=== PATIENT | male | born 1975 ===

== ENCOUNTER 2017-01-18 21:25 | Inpatient (IN) | payer MEDICAID, OTHER ==
[2017-01-18 21:43] VITALS: O2SAT 97
--- NOTE | 2017-01-18 22:01 | C.PDOC ---
History Of Present Illness 41 y/o male presents to ED with complaint of suicidal ideation for 1 week. Pt requesting heroin detox, notes last use was 1 hour prior to arrival. Patient verbalizing that he does not want to live anymore. Denies any suicidal plan or action, homicidal ideation, or any other physical complaints at this time. Time Seen by Provider: 01/18/17 21:48 Chief Complaint (Nursing): Substance Abuse History Per: Patient History/Exam Limitations: no limitations Onset/Duration Of Symptoms: Persistent Current Symptoms Are (Timing): Still Present Modifying Factor(s): Narcotics Associated Symptoms: Suicidal Thoughts. denies: Anxiety, Agitation, Suicidal Plan Recent travel outside of the [place]: No Past Medical History Reviewed: Historical Data, Nursing Documentation, Vital Signs Vital Signs: Last Vital Signs Temp 97.9 F 01/18/17 21:35 Pulse 93 H 01/18/17 21:35 Resp 20 01/18/17 21:35 BP 113/78 01/18/17 21:35 Pulse Ox 97 01/18/17 22:01 - Medical History PMH: Bipolar Disorder, Hepatitis (C) Family History: States: Unknown Family Hx - Social History Hx Alcohol Use: Yes Hx Substance Use: Yes Review Of Systems Except As Marked, All Systems Reviewed And Found Negative. Constitutional: Negative for: Fever, Chills Cardiovascular: Negative for: Chest Pain Respiratory: Negative for: Cough, Shortness of Breath Skin: Negative for: Rash Psych: Positive for: Suicidal ideation. Negative for: Withdrawal Physical Exam - Physical Exam Appears: Non-toxic, No Acute Distress Skin: Warm, Dry Head: Atraumatic, Normacephalic Chest: Symmetrical Cardiovascular: Rhythm Regular Respiratory: Normal Breath Sounds, No Rales, No Rhonchi, No Wheezing Gastrointestinal/Abdominal: Soft, No Tenderness Back: Normal Inspection Extremity: Normal ROM, Capillary Refill (< 2 sec. ) Neurological/Psych: Oriented x3, Normal Speech, Normal Cognition ED Course And Treatment - Laboratory Results Result Diagrams: 01/18/17 22:54 01/18/17 22:26 O2 Sat by Pulse Oximetry: 97 (RA) Pulse Ox Interpretation: Normal Progress Note: Labs, crisis eval ordered. Disposition Discussed With DrJarvis: Laron Ward Doctor Will See Patient In The: Hospital Counseled Patient/Family Regarding: Diagnosis - Disposition Disposition: HOSPITALIZED Disposition Time: 00:19 Condition: STABLE - Clinical Impression Clinical Impression: Depressive disorder, Opiate addiction - Scribe Statement The provider has reviewed the documentation as recorded by the Teresa Madsen Provider Teresa Attestation: All medical record entries made by the Betzaidaibe were at my direction and personally dictated by me. I have reviewed the chart and agree that the record accurately reflects my personal performance of the history, physical exam, medical decision making, and the department course for this patient. I have also personally directed, reviewed, and agree with the discharge instructions and disposition.
[2017-01-18 22:38] LABS: RBC URINE 2 /hpf (0-3); URINE BACTERIA RARE (<OCC); URINE BILIRUBIN NEGATIVE (NEGATIVE); URINE BLOOD NEGATIVE (NEGATIVE); URINE COLOR Amber (YELLOW); URINE GLUCOSE (UA) NORMAL (Normal); URINE KETONE TRACE mg/dL (NEGATIVE); URINE LEUKOCYTE ESTERASE NEG Leu/uL (Negative); URINE PROTEIN NEGATIVE (NEGATIVE); WBC URINE 6 /hpf (0-5)
[2017-01-18 22:41] LABS: CHLORIDE 104 mmol/L (98-107); SODIUM 141 mmol/L (132-148)
[2017-01-18 22:42] LABS: POTASSIUM 3.6 mmol/L (3.6-5.2)
[2017-01-18 22:44] LABS: ALB/GLOB RATIO 1.1 (1.0-2.1); ALKALINE PHOSPHATASE 67 U/L (38-126); ALT/SGPT 146 U/L (21-72); AST/SGOT 346 U/L (17-59); BILIRUBIN,TOTAL 0.7 mg/dL (0.2-1.3); BLOOD UREA NITROGEN 28 mg/dL (9-20); CARBON DIOXIDE 26 mmol/L (22-30); GFR AFRICAN-AMERICAN > 60; GLUCOSE,RANDOM 98 mg/dL (75-110); TOTAL PROTEIN 7.8 g/dL (6.3-8.3)
[2017-01-18 22:45] LABS: ALCOHOL SERUM < 10 mg/dl (0-10); CALCIUM 8.9 mg/dl (8.6-10.4)
[2017-01-18 23:10] LABS: BASO % 0.5 % (0.0-2.0); EOS # 0.6 K/uL (0.0-0.7); EOS % 13.5 % (0.0-4.0); HEMATOCRIT 41.2 % (35.0-51.0); LYMPH # 2.4 K/uL (1.0-4.3); LYMPH % 54.2 % (20.0-40.0); MEAN CELL VOLUME 89.8 fL (80.0-94.0); MEAN CORPUSCULAR HEMOGLOBIN 30.2 pg (27.0-31.0); MEAN CORPUSCULAR HGB CONC 33.6 g/dL (33.0-37.0); MEAN PLATELET VOLUME 9.3 fL (7.2-11.7); MONO # 0.5 K/uL (0.0-0.8); MONO % 10.7 % (0.0-10.0); NRBC % 0.1 % (0.0-2.0); RED CELL DISTRIBUTION WIDTH 12.6 % (11.5-14.5); WHITE BLOOD COUNT 4.5 K/uL (4.8-10.8)
[2017-01-19] MEDS ORDERED: Aluminum Hydroxide/Magnesium Hydroxide Susp (30 mL) PO PRN (00:52)
--- NOTE | 2017-01-19 11:02 | PCM.PSYCH ---
Initial Psychiatric Evaluation - Initial Psychiatric Evaluation Type of Admission: Voluntary Legal Status: Capacity Chief Complaint (in patient's own words): "This had to stop" History of Present Illness and Precipitating Events: The patient is seen, chart reviewed and case discussed. This is a 40-year-old male, single, has one 22-year-old son, unemployed and homeless. He has a fiance. The patient states that he has been using heroin since age 12, off and on and he relapsed recently. That made them depressed and recently he felt suicidal but he has no plans and he contracts for safety right now. He also claims that he was staying quits some friends and fianc but they kicked him out when he relapsed. His fiance may leave soon as well. He he occasionally uses cocaine and smokes 2 packs per day cigarettes but denies other drugs and alcohol. This is his second detox and he has never been to rehabilitation or Suboxone. However, he did methadone for 6 years at [facility] and quit 4 years ago. Her dose was 65 mg. Past psych history: He OD'ed once in 2011 but not get admitted. No outpatient or inpatient treatment Family psych history: Denies Medical history: Hepatitis C Current Medications: Active Medications Generic Name Dose Route Start Last Admin Trade Name Freq PRN Reason Stop Dose Admin Acetaminophen 650 mg 01/19/17 00:52 Tylenol 325mg Tab PO Q4H PRN Fever greater than 101 F Al Hydrox/Mg Hydrox/Simethicone 30 ml 01/19/17 00:52 Maalox 30 Ml PO TID PRN Indigestion / Heartburn Clonidine HCl 0.1 mg 01/19/17 00:52 Catapres PO Q8 PRN COWS Score More or Equal to 5 Hydroxyzine HCl 50 mg 01/19/17 08:49 Atarax PO Q6H PRN Anxiety Ibuprofen 600 mg 01/19/17 08:49 Motrin Tab PO Q6H PRN Pain, moderate (4-7) Loperamide HCl 2 mg 01/19/17 00:52 Imodium PO Q8 PRN Diarrhea Methadone HCl 20 mg 01/19/17 10:00 01/19/17 09:55 Methadone PO 01/23/17 09:59 20 mg Q24H AJ Administration Taper Mirtazapine 15 mg 01/19/17 22:00 Remeron PO HS AJ Ondansetron HCl 4 mg 01/19/17 00:52 Zofran Tab PO Q8 PRN Nausea/Vomiting Trazodone HCl 100 mg 01/19/17 22:00 Desyrel PO HS PRN Insomnia Past Psychiatric History - Past Psychiatric History Previous Treatment History: None Pertinent Medical Hx (Current Medical&Sleep Prob, Allergies): Allergies Allergy/AdvReac Type Severity Reaction Status Date / Time No Known Allergies Allergy Verified 10/02/16 13:54 No Known Home Med 10/02/16 Review of Systems - Neurological Neurological: UNREMARKABLE - Psychiatric Psychiatric: Abnormal Sleep Pattern, Anhedonia, Anxiety, Difficulty Concentrating. absent: Hallucinations, Homicidal Ideation, Paranoia, Suicidal Ideation Mental Status Examination - Personal Presentation Personal Presentation: Looks stated age - Affect Affect: Constricted - Motor Activity Motor Activity: Calm - Reliability in Providing Information Reliability in Providing Information: Good - Speech Speech: Organized - Mood Mood: Anxious - Formal Thought Process Formal Thought Process: No Impairment - Cognitive Functions Orientation: Person, Place, Situation, Time Sensorium: Alert Attention/Concentration: Attentive Estimate of Intelligence: Average Judgement: Intact, as evidence by: Insight regarding need for hospitalization Memory: Recent intact, as evidence by: Ability to recall events of the day, Remote intact, as evidenced by: Abilit to recall sig. life events - Risk Risk: Withdrawal, Diminished functioning - Strength & Assets Inventory Strength & Assets Inventory: Cooperative - Limitations Limitations: Living alone DSM 5 DX - DSM 5 DSM 5 Diagnosis: Depressive d/o - unspecified Opioid withdrawal Opioid use d/o - severe Tobacco use d/o - severe Cocaine use d/o - moderate - Recommended/Plan of Treatment Treatment Recommendations and Plan of Treatment: Depression: -Remeron -CBT and supportive therapy -Attend groups and activities Opioids: -Methadone detox -As needed medications -Support and psychoeducation -Attend groups and activities -SC and CBT for abstinence and relapse prevention -Refer to [facility] or other long-term rehabilitation Nicotine: -Patch -SC for abstinence 32 minutes Projected ELOS: 5 days Prognosis: good with treatment Discharge Plan and Discharge Criteria: no severe depressive symptoms refer to rehabilitation - Smoking Cessation Smoking Cessation Initiated: Yes
[2017-01-20 14:14] VITALS: TEMP 97.7
--- NOTE | 2017-01-20 14:21 | PCM.PYCHPN ---
Psychiatric Progress Note - Psychiatric Progress Note Patient seen today, length of contact: 17 mins Patient Chief Complaint: "I'm ok" Problems Identified/Issues Discussed: Pt seen, chart reviewed, case discussed Pt reports he is doing ok. He slept last night. He denies any withdrawal symptoms or side effects from medications. He would like to go to rehab. Pt was counseled on the need for maintenance therapy. Pt was counseled on Vivitrol. Support and psychosocial education given. Medication Change: Yes (methadone taper) Medical Record Reviewed: Yes Mental Status Examination - Cognitive Function Orientation: Person, Place, Situation, Time Memory: Intact Attention: WNL Concentration: WNL Association: WN Fund of Knowledge: WNL - Mood Mood: Anxious - Affect Affect: Constricted, Flat - Speech Speech: Appropriate - Formal Thought Process Formal Thought Process: No Impairment - Suicidal Ideation Suicidal Ideation: No - Homicidal Ideation Homicidal Ideation: No Goal/Treatment Plan - Goal/Treatment Plan Need for Continued Stay: Remain at risks for inpatient hospitalization, Severe depression anxiety, Discharge may exacerbated symptoms Progress Toward Problem(s) and Goals/Treatment Plan: Depression: -Remeron -CBT and supportive therapy -Attend groups and activities Opioids: -Methadone detox -As needed medications -Support and psychoeducation -Attend groups and activities -DC and CBT for abstinence and relapse prevention -Refer to [facility] or other long-term rehabilitation -Vivitrol medication counseling Nicotine: -Patch -DC for abstinence - Smoking Cessation Smoking Cessation Initiated: Yes
[2017-01-21 08:02] VITALS: RESP 20
--- NOTE | 2017-01-21 15:16 | PCM.PYCHPN ---
Psychiatric Progress Note - Psychiatric Progress Note Patient seen today, length of contact: 16 mins Patient Chief Complaint: "I'm happy" Problems Identified/Issues Discussed: Pt seen, chart reviewed, case discussed Pt reports that he is doing well. He denies feeling anxious or depressed and says he is happy. Pt reports he was tossing and turning all of last night and did not sleep very much. Pt denies any withdrawal symptoms. Aftercare was discussed and patient will be going to [facility]. Support and psychoeducation given Medication Change: Yes (methadone taper) Medical Record Reviewed: Yes Mental Status Examination - Cognitive Function Orientation: Person, Place, Situation, Time Memory: Intact Attention: WNL Concentration: WNL Association: WN Fund of Knowledge: WNL - Mood Mood: Neutral - Affect Affect: Constricted - Speech Speech: Appropriate - Formal Thought Process Formal Thought Process: No Impairment - Suicidal Ideation Suicidal Ideation: No - Homicidal Ideation Homicidal Ideation: No Goal/Treatment Plan - Goal/Treatment Plan Need for Continued Stay: Remain at risks for inpatient hospitalization, Discharge may exacerbated symptoms Progress Toward Problem(s) and Goals/Treatment Plan: Depression: -Remeron -CBT and supportive therapy -Attend groups and activities Opioids: -Methadone detox -As needed medications -Support and psychoeducation -Attend groups and activities -MS and CBT for abstinence and relapse prevention -Refer to [facility] -Vivitro medication counseling Nicotine: -Patch -MS for abstinence - Smoking Cessation Smoking Cessation Initiated: Yes
[2017-01-21 17:06] VITALS: BP 109/69; PULSE 66
--- NOTE | 2017-01-22 10:30 | PCM.PYCHDC ---
Mental Status Examination - Mental Status Examination Orientation: Person, Place, Situation, Time Memory: Intact Mood: Neutral Affect: Constricted Speech: Soft Attention: WNL Concentration: WNL Association: WNL Fund of Knowledge: WNL Formal Thought Process: No Impairment Description of patient's judgement and insight: good, fair Psychotic Thoughts and Behaviors: denies any AVH Suicidal Ideation: No Current Homicidal Ideation?: No Discharge Summary - Discharge Note Reason for Hospitalization: This is a 40-year-old male, single, has one 22-year-old son, unemployed and homeless. He has a fiance. The patient states that he has been using heroin since age 12, off and on and he relapsed recently. That made them depressed and recently he felt suicidal but he has no plans and he contracts for safety right now. He also claims that he was staying quits some friends and fianc but they kicked him out when he relapsed. His fiance may leave soon as well. He he occasionally uses cocaine and smokes 2 packs per day cigarettes but denies other drugs and alcohol. This is his second detox and he has never been to rehabilitation or Suboxone. However, he did methadone for 6 years at [facility] and quit 4 years ago. Her dose was 65 mg. Past psych history: He OD'ed once in 2011 but not get admitted. No outpatient or inpatient treatment Consultations:: List each consultation separately and include: 1. Reason for request. 2. Findings. 3. Follow-up Summary of Hospital Course include:: 1. Description of specific treatment plan utilized for patients during their course of treatmen. 2. Summarize the time- course for resolution of acute symptoms and/or regressed behaviors. 3. Describe issues identified and worked on during hospitalization. 4. Describe medication utilized. 5. Describe medical problems identified and treated. 6. Reassessment of suicide risk Summary of Hospital Course: During the course of his stay, patient (pt) started progressively improving and he no longer remained irritable, depressed, and suicidal. His mood and withdrawal symptoms were improved and he started attending groups and meetings and started socializing. Patient denied any feelings of hopelessness, helplessness, and worthlessness, denied any problem with the sleep or appetite, denied suicidal ideation or homicidal ideation. Pt denied any auditory or visual hallucinations. Some changes were made in his current medications and patient was discharged on following medications. He tolerated these medications very well and denied any side effects. - Final Diagnosis (DSM 5) Condition upon Discharge: STABLE DSM 5: Depressive d/o - unspecified Opioid withdrawal Opioid use d/o - severe Tobacco use d/o - severe Cocaine use d/o - moderate Disposition: HOME/ ROUTINE Follow-up Treatment Plan: Education: Pt was educated and counseled about the risks and benefits of taking and not taking medications. Pt was educated and counseled about the risks of drinking and abusing drugs. Pt was educated and counseled to go to the ER or call 911 if pt develop suicidal ideation or homicidal ideation, worsening of symptoms or severe side effects of the meds. Prescriptions/Medication Reconciliation: Mirtazapine [Remeron] 15 mg PO HS #30 tab traZODone [Desyrel] 100 mg PO HS #30 tab - Smoking Cessation Smoking Cessation Medication prescribed: No - Antipsychotic Medications Pt discharged on 2 or more routine antipsychotic medications: No
== END 2017-01-22 10:55 | disposition home or self-care (01) | DRG 744 ==
LOC: C.ER 21:25 → C.5E 01-19 00:18
PROC: HZ2ZZZZ Detoxification Services for Substance Abuse Treatment (ICD-10-PCS; principal; 2017-01-19)
PROC: HZ32ZZZ Individual Counseling for Substance Abuse Treatment, Cognitive-Behavioral (ICD-10-PCS; 2017-01-19)
PROC: HZ42ZZZ Group Counseling for Substance Abuse Treatment, Cognitive-Behavioral (ICD-10-PCS; 2017-01-19)
PROC: HZ59ZZZ Individual Psychotherapy for Substance Abuse Treatment, Supportive (ICD-10-PCS; 2017-01-19)
PROC: HZ46ZZZ Group Counseling for Substance Abuse Treatment, Psychoeducation (ICD-10-PCS; 2017-01-19)
PROC: HZ36ZZZ Individual Counseling for Substance Abuse Treatment, Psychoeducation (ICD-10-PCS; 2017-01-19)
DX: F11.23 Opioid dependence with withdrawal (principal); B19.20 Unspecified viral hepatitis C without hepatic coma; R45.851 Suicidal ideations; F31.9 Bipolar disorder, unspecified; Z59.0 Homelessness; F14.10 Cocaine abuse, uncomplicated; F41.8 Other specified anxiety disorders; F17.200 Nicotine dependence, unspecified, uncomplicated

== ENCOUNTER 2017-06-04 16:22 | Emergency (ER) | payer MEDICAID ==
[2017-06-04 18:00] VITALS: TEMP 99.8
--- NOTE | 2017-06-04 18:13 | C.PDOC ---
History Of Present Illness 41 year old male presents to the ED with complaints of Time Seen by Provider: 06/04/17 17:58 Chief Complaint (Nursing): Abdominal Pain History Per: Patient History/Exam Limitations: no limitations Current Symptoms Are (Timing): Still Present Recent travel outside of the [place]: No Past Medical History Reviewed: Historical Data, Nursing Documentation, Vital Signs Vital Signs: Last Vital Signs Temp 99.8 F H 06/04/17 17:59 Pulse 98 H 06/04/17 17:59 Resp 16 06/04/17 17:59 BP 96/65 L 06/04/17 17:59 Pulse Ox 95 06/04/17 16:47 - Medical History PMH: Bipolar Disorder, Hepatitis (C) Denies: HIV (Negative) - [employer] [facility] DETOXIFICATION SERVICES FOR SUBSTANCE ABUSE TREATMENT (01/19/17) GROUP SALES RECRUITER FOR SUBSTANCE ABUSE TREATMENT, PSYCHOEDUCATION (01/19/17) GROUP SALES RECRUITER FOR SUBSTANCE ABUSE, COGNITIVE BEHAVIORAL (01/19/17) INDIV SALES RECRUITER FOR SUBSTANCE ABUSE TREATMENT, PSYCHOEDUCATION (01/19/17) INDIV SALES RECRUITER FOR SUBSTANCE ABUSE, COGNITIVE BEHAVIORAL (01/19/17) INDIV PSYCHOTHERAPY FOR SUBSTANCE ABUSE TREATMENT, SUPPORT (01/19/17) Family History: States: Unknown Family Hx - Social History Hx Alcohol Use: No Hx Substance Use: Yes (LAST USED TODAY) - Immunization History Hx Tetanus Toxoid Vaccination: Yes Hx Influenza Vaccination: No Hx Pneumococcal Vaccination: No Physical Exam - Physical Exam Additional Physical Exam Comments: Constitutional: No acute distress. Head: Normocephalic. Atraumatic. Eyes: PERRL. EOMI ENT: Moist mucous membranes. Neck: Supple. Cardiovascular: Regular rate and rhythm. No murmur. Chest: No tenderness. Respiratory: Clear to auscultation bilaterally. No wheezing, rhonchi, or rales. GI: Soft. Nontender. Nondistended. Normoactive bowel sounds. Back: No CVA tenderness. Musculoskeletal: No swelling of extremities. No calf tenderness. Skin: No rash. Neurologic: Alert, no gross focal deficit. ED Course And Treatment O2 Sat by Pulse Oximetry: 95 (room air ) Progress Note: VBG, CXR, UA, labs, an blood work were ordered and patient was given Tylenol. Disposition - Disposition Forms: [employer] (Serbian) - PA / PALEONTOLOGICAL HELPER / Resident Statement MD/DO has reviewed & agrees with the documentation as recorded. - Scribe Statement The provider has reviewed the documentation as recorded by the Betzaidaibfozia Cullen All medical record entries made by the Teresa were at my direction and personally dictated by me. I have reviewed the chart and agree that the record accurately reflects my personal performance of the history, physical exam, medical decision making, and the department course for this patient. I have also personally directed, reviewed, and agree with the discharge instructions and disposition.
[2017-06-04 18:14] LABS: BASO % 0.4 % (0.0-2.0); EOS % 0.6 % (0.0-4.0); HEMATOCRIT 39.8 % (35.0-51.0); LYMPH # 1.4 K/uL (1.0-4.3); LYMPH % 21.4 % (20.0-40.0); MEAN CORPUSCULAR HEMOGLOBIN 30.3 pg (27.0-31.0); MEAN CORPUSCULAR HGB CONC 34.5 g/dL (33.0-37.0); MEAN PLATELET VOLUME 8.4 fL (7.2-11.7); MONO # 0.7 K/uL (0.0-0.8); MONO % 10.6 % (0.0-10.0); RED CELL DISTRIBUTION WIDTH 13.3 % (11.5-14.5); WHITE BLOOD COUNT 6.4 K/uL (4.8-10.8)
--- NOTE | 2017-06-04 18:17 | C.PDOC ---
History Of Present Illness <Daina Paul - Last Filed: 06/04/17 19:00> <Duane Yu - Last Filed: 06/04/17 21:14> 41 year old male with a history of Hepatitis C presents to the ED with complaints of epigastric and RUQ abdominal burning sensation beginning a few days ago. Patient has history of IVDA was released from alf three days ago. He has been using iv heroin to combat the abdominal pain. He states he is HIV negative and denies fever, chills, nausea, vomiting, diarrhea, headache, neck pain, chest pain, or shortness of breath. (Daina Paul) History Per: Patient History/Exam Limitations: no limitations Onset/Duration Of Symptoms: Days (2) Current Symptoms Are (Timing): Still Present Location Of Pain/Discomfort: RUQ, Epigastric Radiation Of Pain To:: None Quality Of Discomfort: Burning Associated Symptoms: denies: Fever, Chills, Nausea, Vomiting, Diarrhea, Urinary Symptoms Recent travel outside of the [place]: No <Daina Paul - Last Filed: 06/04/17 19:00> <Duane Yu - Last Filed: 06/04/17 21:14> Time Seen by Provider: 06/04/17 17:58 Chief Complaint (Nursing): Abdominal Pain Past Medical History Reviewed: Historical Data, Nursing Documentation, Vital Signs - Medical History PMH: Bipolar Disorder, Hepatitis (C) Denies: HIV (Negative) Family History: States: Unknown Family Hx - Social History Hx Tobacco Use: Yes Hx Alcohol Use: No Hx Substance Use: Yes (LAST USED TODAY) - Immunization History Hx Tetanus Toxoid Vaccination: Yes Hx Influenza Vaccination: No Hx Pneumococcal Vaccination: No <Daina Paul - Last Filed: 06/04/17 19:00> Review Of Systems Constitutional: Negative for: Fever, Chills Cardiovascular: Negative for: Chest Pain, Palpitations Respiratory: Negative for: Cough, Shortness of Breath Gastrointestinal: Positive for: Abdominal Pain. Negative for: Nausea, Vomiting , Diarrhea <Daina Paul - Last Filed: 06/04/17 19:00> Physical Exam <Daina Paul - Last Filed: 06/04/17 19:00> <Duane Yu - Last Filed: 06/04/17 21:14> - Physical Exam Additional Physical Exam Comments: Constitutional: wdwn, No acute distress. Head: Normocephalic. Atraumatic. Eyes: PERRL. EOMI ENT: Moist mucous membranes. Neck: Supple. Cardiovascular: Patient is tachycardic. No murmur. Chest: No tenderness. Respiratory: decreased bilateral bs. No wheezing, rhonchi, or rales. GI: Soft. Epigastric and RUQ tenderness. Nondistended. Normoactive bowel sounds. Hepatomegaly. no rebound or guarding. Back: No CVA tenderness. Musculoskeletal: No swelling of extremities. No calf tenderness. Skin: No rash. Neurologic: Alert, no gross focal deficit. (Daina Paul) ED Course And Treatment - Laboratory Results Result Diagrams: 06/04/17 18:10 06/04/17 18:10 O2 Sat by Pulse Oximetry: 95 (room air ) Progress Note: VBG, UA, Abdomen US, CXR, and blood work was ordered. Patient was given Tylenol and IV fluids. <Daina Paul - Last Filed: 06/04/17 19:00> - Laboratory Results Result Diagrams: 06/04/17 18:10 06/04/17 18:10 Reevaluation Time: 21:10 Reassessment Condition: Improved <Duane Yu - Last Filed: 06/04/17 21:14> Medical Decision Making <Daina Paul - Last Filed: 06/04/17 19:00> <Duane Yu - Last Filed: 06/04/17 21:14> Medical Decision Making: Upon provider reevaluation patient is feeling better, is medically stable, and requires no further treatment in the ED at this time. Patient will be discharged home with Rx for protonix . Counseling was provided and all questions were answered regarding diagnosis and need for follow up with the referred clinic. There is agreement to discharge plan. Return if symptoms persist or worsen. (Duane Yu) Disposition - Disposition Disposition Time: 19:03 <Daina Paul - Last Filed: 06/04/17 19:00> Counseled Patient/Family Regarding: Studies Performed, Diagnosis, Need For Followup, Rx Given <Duane Yu - Last Filed: 06/04/17 21:14> - Disposition Referrals: [facility] [Outside] [facility] [Outside] Condition: STABLE Prescriptions: Pantoprazole Sodium [Protonix] 40 mg PO DAILY #15 ect Instructions: Abdominal Pain (ED), Gastritis (DC), Gallstones (DC) Forms: [employer] (Macanese) - Clinical Impression Clinical Impression: Abdominal pain, Hepatosplenomegaly, Gastritis - PA / GRUBBER / Resident Statement MD/DO has reviewed & agrees with the documentation as recorded. - Scribe Statement The provider has reviewed the documentation as recorded by the Scribe <Daina Paul - Last Filed: 06/04/17 19:00> <Duane Yu - Last Filed: 06/04/17 21:14> - Scribe Statement Anita Cullen All medical record entries made by the Scribe were at my direction and personally dictated by me. I have reviewed the chart and agree that the record accurately reflects my personal performance of the history, physical exam, medical decision making, and the department course for this patient. I have also personally directed, reviewed, and agree with the discharge instructions and disposition. (Daina Paul) Physician Patient Turnover Patient Signed Over To: Duane Yu Handoff Comments: f/u labs, cxr and abdominal ct, dispo accordingly <Daina Paul - Last Filed: 06/04/17 19:00> Addendum <Daina Paul - Last Filed: 06/04/17 19:00> <Duane Yu - Last Filed: 06/04/17 21:14> Addendum: 06/04/17 20:59 EXAM: US Abdomen Complete EXAM DATE/TIME: Exam ordered 06/04/2017 6:17 PM CLINICAL HISTORY: 41 years old, male; Pain; Abdominal pain; Epigastric; Additional info: Epigastric/ruq pain, fever, hepatomegaly, HX hep c TECHNIQUE: Real-time ultrasound of the abdomen (complete) with image documentation. COMPARISON: No relevant prior studies available. FINDINGS: Liver: The liver measures 19.2 cm in craniocaudal spanThere is normal blood flow direction in the main portal vein. Normal phasic flow is noted within the middle hepatic vein. Gallbladder: Gallstones are noted in the gallbladder. Gallbladder wall is markedly thickened at 1.5 cm.. Edema is noted in the hepato- cholecystic space. Common bile duct: The common bile duct measures 5 mm. No stones. No dilation. Pancreas: Unremarkable as visualized. Kidneys: The right kidney measures 10.6 x 6 x 5.3 cm. Left kidney measures 11.2 x 5.4 x 5.3 cm. An 8 mm cyst with a tiny internal septation is present within the upper pole the left kidney. No stones. No hydronephrosis. Spleen: The spleen measures 12.9 cm in craniocaudal span. Aorta: The distal abdominal aorta is not seen due to bowel gas. Proximally the abdominal aorta shows no evidence of aneurysm.. Inferior vena cava: Unremarkable. IMPRESSION: 1. Hepatosplenomegaly in this patient with history of hepatitis C. No discrete masses. 2. Gallstones with a markedly thickened gallbladder wall. The Medrano's sign was negative. Gallbladder wall thickening is a nonspecific sign and can be seen in the presence of hepatitis. Neuropathy or pain medication can mask a Medrano sign. If there is strong clinical concern for acute cholecystitis, nuclear scintigraphy is suggested 3. Septated left renal cyst. No suspicious features (Duane Yu)
[2017-06-04] MEDS ORDERED: Sodium Chloride 0.9% 1,000 ML IV ONE ×2 (18:18→18:19)
[2017-06-04 18:21] LABS: CHLORIDE 101 mmol/L (98-107)
[2017-06-04 18:22] LABS: POTASSIUM 4.7 mmol/L (3.6-5.2); SODIUM 138 mmol/L (132-148)
[2017-06-04 18:22] LABS: VENOUS BLOOD GAS BASE EXCESS 3.2 mmol/L (0.0-2.0); VENOUS BLOOD GAS PCO2 42 mmHg (40-60); VENOUS BLOOD PH 7.43 (7.32-7.43)
[2017-06-04 18:24] LABS: AMYLASE 84 U/L (30-110); GFR AFRICAN-AMERICAN > 60
[2017-06-04 18:25] LABS: ALB/GLOB RATIO 1.1 (1.0-2.1); ALKALINE PHOSPHATASE 83 U/L (38-126); ALT/SGPT 75 U/L (21-72); AST/SGOT 52 U/L (17-59); BILIRUBIN,TOTAL 0.9 mg/dL (0.2-1.3); BLOOD UREA NITROGEN 28 mg/dL (9-20); CALCIUM 9.4 mg/dl (8.6-10.4); CARBON DIOXIDE 25 mmol/L (22-30); GLUCOSE,RANDOM 90 mg/dL (75-110); TOTAL PROTEIN 8.3 g/dL (6.3-8.3)
[2017-06-04] MEDS ORDERED: Iohexol 240 (50 ml) PO STA (19:07)
[2017-06-04] MEDS ORDERED: Sodium Chloride 0.9% 1,000 ML ONE (19:34)
[2017-06-04] MEDS ORDERED: Iohexol 240 (50 ml) ONE (19:59)
[2017-06-04 20:20] LABS: RBC URINE 3 /hpf (0-3); URINE BACTERIA RARE (<OCC); URINE BILIRUBIN NEGATIVE (NEGATIVE); URINE BLOOD NEGATIVE (NEGATIVE); URINE COLOR Amber (YELLOW); URINE GLUCOSE (UA) NORMAL (Normal); URINE KETONE NEGATIVE (NEGATIVE); URINE LEUKOCYTE ESTERASE NEG Leu/uL (Negative); URINE PROTEIN 1+ mg/dL (NEGATIVE); WBC URINE 3 /hpf (0-5)
--- NOTE | 2017-06-04 20:54 | US ---
EXAM: US Abdomen Complete EXAM DATE/TIME: Exam ordered 06/04/2017 6:17 PM CLINICAL HISTORY: 41 years old, male; Pain; Abdominal pain; Epigastric; Additional info: Epigastric/ruq pain, fever, hepatomegaly, HX hep c TECHNIQUE: Real-time ultrasound of the abdomen (complete) with image documentation. COMPARISON: No relevant prior studies available. FINDINGS: Liver: The liver measures 19.2 cm in craniocaudal spanThere is normal blood flow direction in the main portal vein. Normal phasic flow is noted within the middle hepatic vein. Gallbladder: Gallstones are noted in the gallbladder. Gallbladder wall is markedly thickened at 1.5 cm.. Edema is noted in the hepato- cholecystic space. Common bile duct: The common bile duct measures 5 mm. No stones. No dilation. Pancreas: Unremarkable as visualized. Kidneys: The right kidney measures 10.6 x 6 x 5.3 cm. Left kidney measures 11.2 x 5.4 x 5.3 cm. An 8 mm cyst with a tiny internal septation is present within the upper pole the left kidney. No stones. No hydronephrosis. Spleen: The spleen measures 12.9 cm in craniocaudal span. Aorta: The distal abdominal aorta is not seen due to bowel gas. Proximally the abdominal aorta shows no evidence of aneurysm.. Inferior vena cava: Unremarkable. IMPRESSION: 1. Hepatosplenomegaly in this patient with history of hepatitis C. No discrete masses. 2. Gallstones with a markedly thickened gallbladder wall. The Medrano's sign was negative. Gallbladder wall thickening is a nonspecific sign and can be seen in the presence of hepatitis. Neuropathy or pain medication can mask a Medrano sign. If there is strong clinical concern for acute cholecystitis, nuclear scintigraphy is suggested 3. Septated left renal cyst. No suspicious features.
[2017-06-04] MEDS ORDERED: Iodixanol 320 MG/ML 100 ML BOTTLE IV ONE (21:06)
[2017-06-05 00:01] VITALS: BP 112/71; PULSE 81; RESP 17; O2SAT 99
--- NOTE | 2017-06-05 11:35 | CT ---
PROCEDURE: CT Abdomen and Pelvis with contrast HISTORY: abd pain COMPARISON: Comparison is made to previous same-day ultrasound of the abdomen. TECHNIQUE: Contrast dose: 100 cc of Visipaque 320. Axial and reformatted coronal and sagittal CT images of the abdomen and pelvis were obtained Radiation dose: Total exam DLP = 341.55 mGy-cm. This CT exam was performed using one or more of the following dose reduction techniques: Automated exposure control, adjustment of the mA and/or kV according to patient size, and/or use of iterative reconstruction technique. FINDINGS: LOWER THORAX: No evidence of acute pathology at the lung bases. LIVER: Uady-iv-ajvttddw hepatomegaly is again noted. There is heterogeneous diffuse attenuation of the liver noted without evidence of discrete mass lesion. The portal vein is patent. GALLBLADDER AND BILE DUCTS: The gallbladder is mildly distended demonstrate diffuse wall thickening contains multiple gallstones and surrounding with moderate pericholecystic fluid. The possibility of acute cholecystitis should be excluded. The differential diagnosis includes less likely gallbladder wall thickening and pericholecystic fluid secondary to hepatitis or other soft tissue edema. . PANCREAS: Unremarkable. No gross lesion or ductal dilatation. SPLEEN: The spleen is elongated mildly enlarged measures 13.4 centimeter. ADRENALS: Unremarkable. No mass. KIDNEYS AND URETERS: Unremarkable. No hydronephrosis. No solid mass. There is low-attenuation likely cystic lesion at the mid pole left kidney measures 1.3 centimeter. VASCULATURE: Unremarkable. No aortic aneurysm. BOWEL: Rdlq-[id number] constipation is noted. Mild diffuse small bowel wall thickening and possible gastric mucosal thickening noted which could be due to gastroenteritis. APPENDIX: No evidence of appendicitis. PERITONEUM: Unremarkable. No free fluid. No free air. LYMPH NODES: Mesenteric and retroperitoneal mildly enlarged lymph nodes are noted. BLADDER: Unremarkable. REPRODUCTIVE: Unremarkable. BONES: No acute fracture. OTHER FINDINGS: None. IMPRESSION: Gallstones diffuse gallbladder wall thickening and moderate pericholecystic fluid noted. The possibility of acute cholecystitis should be considered. If clinically warranted further assessment by hepatobiliary scan may be obtained. The differential diagnosis for the above-mentioned findings at the gallbladder may includes acute hepatitis. No evidence of extrahepatic or intrahepatic biliary ductal dilatation. Mild hepato splenomegaly of uncertain etiology. [id number]-ilyloemq constipation. Preliminary report was submitted by [facility].
--- NOTE | 2017-06-06 13:55 | RAD ---
HISTORY: fever ab pain COMPARISON: Correlation made with CT scan abdomen pelvis 06/04/2017 at 2155 hours. . TECHNIQUE: Chest PA and lateral FINDINGS: LUNGS: No active pulmonary disease. PLEURA: Suspect minimal left apical pleural thickening. No significant pleural effusion identified. No pneumothorax apparent. CARDIOVASCULAR: Normal. OSSEOUS STRUCTURES: No significant abnormalities. VISUALIZED UPPER ABDOMEN: Normal. OTHER FINDINGS: None. IMPRESSION: No acute infiltrates. Suspect minimal left apical pleural thickening
== END 2017-06-05 00:01 | disposition home or self-care (01) ==
LOC: C.ER 16:22
DX: K29.70 Gastritis, unspecified, without bleeding (principal); R16.2 Hepatomegaly with splenomegaly, not elsewhere classified
CPT/HCPCS: 71020; 74177; 76700; 80053; 81001; 82150; 82803; 83690; 85025; 87040; 87086; 96361; 96374; 99285; J7040; Q9966; Q9967